=== PATIENT | male | born 1965 | race Caucasian/White ===

== ENCOUNTER 2016-05-21 09:49 | Emergency (ER) | payer MEDICARE, MEDICAID ==
[2016-05-21 10:26] VITALS: BP 122/82; PULSE 92; TEMP 98.9; BMI 28.5
--- NOTE | 2016-05-21 11:34 | DIRPT ---
CLINICAL DATA: Right wrist pain after fall down stairs this morning. Initial encounter. EXAM: RIGHT WRIST - COMPLETE 3+ VIEW COMPARISON: 12/25/2014 FINDINGS: There is no evidence of fracture or dislocation. Negative soft tissues. IMPRESSION: Negative. Electronically Signed By: Art Nichols M.D. On: 05/21/2016 11:32
[2016-05-21] MEDS ORDERED: HYDROCODONE 5 MG/ACETAMIN 325 MG TAB PO ONE (11:41)
--- NOTE | 2016-05-21 11:43 | EDPRACDOC ---
- General Information Chief Complaint: Wrist Pain Stated Complaint: FALL,RT WRIST PAIN Time Seen by Provider: 05/21/16 11:38 Information Source: Patient Home Medications: Home Medications Buspirone HCl [Buspar] 15 mg PO TID 12/15/13 Gabapentin [Neurontin] 600 mg PO QID 12/15/13 Lurasidone HCl [Latuda] 20 mg PO .DAILY WITH FOOD 05/02/14 Hydrocodone Bit/Acetaminophen [Hydrocodon-Acetaminophen 5-325] 1 tab PO Q4H PRN #7 tab 05/21/16 Trazodone HCl 100 mg PO QHS 05/21/16 Allergies/Adverse Reactions: Allergies Allergy/AdvReac Type Severity Reaction Status Date / Time Penicillins Allergy Hives* Verified 05/21/16 10:24 - History of Present Illness Onset: this am HPI: PT STATES FELL DOWN STEPS HURT RIGHT WRIST C/O PAIN. NO OBVIOUS SWELLING OR DEFORMITY. Location: Reports: Dorsal, Volar, Ulnar, Radial Dominant Side: Reports: Right Mechanism: Reports: FOOSH Circumstances: Reports: Fall Tetanus Up To Date?: No Pain Severity: Reports: Moderate Associated Signs and Symptoms: Reports: None ED Past Medical History - History Reviewed Yes Nurses notes reviewed and agree except as marked Travel Outside of [place] in the Last 3 Months?: No - Patient Medical History Cardiac History: Reports: Coronary Artery Disease, Hypertension, Congestive Heart Failure (has been told in the past), Cardiac Catheterization, Hypercholesterolemia GI/ History: Reports: Kidney Stones Psychological History: Reports: Anxiety, Schizophrenia, Bipolar Disorder. Denies: Depression Systemic History: Reports: Diabetes. Denies: Cancer Surgical History: Reports: Appendectomy, Cardiac Catheterization, Hernia Surgery , Tonsillectomy/Adnoidectomy - Family Medical History Reports: Hypertension (throughout the family), Diabetes (father, grandfather), Cancer (father-brain, grandmother-breast; grandfather-bladder/bowel), Stroke ( both grandmothers), Cardiac Disorders (grandfather - CHF) - Social Medical History Smoking Status: Heavy tobacco smoker (5 or more cigarettes/day or daily pipe/ cigar) ETOH: None Substance Abuse: None Lives With: Spouse Lives In: Home EDM Review of Systems - Review of Systems ROS Negative Except as Marked: Yes All systems reviewed and were negative except as marked Constitutional: No Symptoms Reported. negative: Fever, Chills, Weakness, Fatigue, Loss of Appetite Eyes: No Symptoms Reported. negative: Redness, Blurred Vision, Double Vision, Discharge, Pain, Light Sensitive, Photophobia Ears: No Symptoms Reported. negative: Pain, Hearing Loss, Drainage, Ear Pulling Throat: No Symptoms Reported. negative: Pain, Swelling Nose: No Symptoms Reported. negative: Congestion, Bleeding, Discharge, Injection, Swelling, Deformity, Ecchymosis, Tender, Abrasion, Laceration Mouth: No Symptoms Reported. negative: Pain, Drooling Respiratory: No Symptoms Reported. negative: Cough, Brassy Cough, Barky Cough, Shortness of Breath, Wheezing, Hemoptysis Cardiovascular: No Symptoms Reported. negative: Chest Pain, Palpitations, Syncope, Edema, Orthopnea, PND, Skin Mottling, Cyanosis Gastrointestinal: No Symptoms Reported. negative: Pain, Constipation, Nausea, Vomiting, Diarrhea, Melena, Formula Intolerance Genitourinary: No Symptoms Reported. negative: Dysuria, Hematuria, Frequency, Discharge, Bleeding, Testicular Pain, Neurological: No Symptoms Reported. negative: Headache, Dizziness, Seizure, Numbness, Weakness, Speech Difficulty, Gait Difficulty Musculoskeletal: Wrist (RT). negative: Arm, Ankle, Back, Chestwall, Elbow, Forearm, Femur, Foot, Hand, Hip, Knee, Leg, Neck, Pelvis, Ribs, Shoulder Integumentary: No Symptoms Reported. negative: Itching, Rash, Bruising, Wound Allergic/Immunologic: No Symptoms Reported. negative: Hives, Itching Hematologic: No Symptoms Reported. negative: Lymphadenopathy, Easy Bruising, Easy Bleeding Endocrine: No Symptoms Reported. negative: Weight Gain, Weight Loss Psychiatric: No Symptoms Reported. negative: Anxiety, Depression, Hallucinations, Insomnia, Suicidal - Physical Exam Constitutional: Alert (Awake), No apparent distress Oriented to: Time, Person, Place Last recorded Vital Signs: Last Vital Signs Temp 98.9 F 05/21/16 10:24 Pulse 92 05/21/16 10:24 Resp 18 05/21/16 10:24 BP 122/82 05/21/16 10:24 Pulse Ox 96 05/21/16 10:24 Oxygen Pulse Oxygen Saturation 96 O2 Device Room Air Oxygen Flow Rate Fraction of Inspired Oxygen ( FIO2) - HEENT Head: Normal ( normocephalic) Eye Exam: Normal (PERRL, EOMI, Sclera white) Oropharynx: Normal (Pharynx:Moist without exudate,Gums-no swelling) Tympanic Membrane: Normal ENT EAC: Normal TMJ: Normal Nose: No Symptoms Reported (septum midline) Neck: Normal (FROM, trachea at midline) - Respiratory/Cardiovascular Respiratory: Normal - CTA (BBS clear to auscultation without adventitious sounds ) Cardiovascular: Normal (RRR without murmur, gallop or rub) - GI Auscultation: Normal (NABS) Palpation: Normal (Soft,No rebound or guarding, non distended) Tenderness: Non tender Thomas's Sign: Negative - Bladder: Normal - Musculoskeletal Back: Normal (Non-Tender) Extremities: Normal (Normal tone, Pulses 2+ No cyanosis or edema, FROM) - Integumentary Skin: Normal, Warm, Dry Lymphatics: Normal (no adenopathy) - Neurologic Memory Impaired: Normal Motor Function: Normal (Normal tone, Pulses 2+ No cyanosis or edema, FROM) Cranial Nerve: Normal (CN II-X11 intact sensation, strength 5/5) Cerebellar: Normal Mood Description: Normal Perception: Normal ED Wrist Problem Exam Wrist Symptoms: Limited ROM (PAINFUL BUT FULL ROM), Mild Tenderness Hand Symptoms: Normal Forearm Symptoms: Normal Distal Function/Circulation: Normal - Integumentary Skin: Normal Tendon %: None Identified Lymphatics: Normal ED Procedures - Splinting WRIST Location: RT Pre-Made Type: velcro Pre-Proc Neuro Vasc Exam: normal Post-Proc Neuro Vasc Exam: normal ED Wrist Problem MDM - Differential Diagnosis Differential Diagnosis: Contusion, Fracture-Carpal, Fracture-Radius/Ulna, Sprain - Diagnostic Imaging WRIST Image interpreted by: Radiologist Diagnostic Imaging Comments: NEGATIVE Decision Time to Discharge: 11:44 - Departure Disposition: Home Condition: Stable Final Diagnosis: Sprain of wrist Instructions: Wrist Injury (ED) Education/Counseling Given To: Patient Education/Counseling Given Regarding: Diagnosis, Treatment, Prognosis, Follow Up Referrals: Lacho Miller MD [Primary Care Provider] - One Week Conner Blue MD [Staff Physician] - One Week Prescriptions: Hydrocodone Bit/Acetaminophen [Hydrocodon-Acetaminophen 5-325] 1 tab PO Q4H PRN #7 tab PRN Reason: Pain Additional Instructions: RICE
== END 2016-05-21 11:53 | disposition home or self-care (01) ==
LOC: ED 09:49 → EDMC 11:53
DX: S63.501A Unspecified sprain of right wrist, initial encounter (principal); W10.9XXA Fall (on) (from) unspecified stairs and steps, initial encounter
CPT/HCPCS: 29125; 73110; 99283; A9270; J3490

== ENCOUNTER 2016-06-02 03:51 | Emergency (ER) | payer MEDICARE, MEDICAID ==
[2016-06-02 04:47] VITALS: TEMP 97.7; BMI 28.7
[2016-06-02] MEDS ORDERED: MORPHINE 4 MG/ML INJECTION IV ONE ×2 (04:52→05:42)
[2016-06-02] MEDS ORDERED: NS 1,000 ML IV ONE (04:52)
[2016-06-02] MEDS ORDERED: ONDANSETRON HCL 4 MG/2 ML VIAL IV ONE ×2 (04:52→05:42)
--- NOTE | 2016-06-02 04:55 | EDPRACDOC ---
- General Information Information Source: Patient Mode Of Arrival: Car - History of Present Illness Onset: 229 HPI: c/o RLQ pain with pain in right flank and N/V since 2:30 this am. Pain is constant, Pt cannot get comfortable. Hx of kidney stones with last 2 yrs ago. Pt states that this feels just like the last one. Denies fever, sob, cp, cough, sore throat, changes in BM. Med hx = kidney stones, HTN. Surgical hx = appy, hernia repair all >4 yrs ago. Pain Began: Reports: Spontaneous (while sleeping) Pain Location: Reports: Abdomen (rlq), Flank (right). Denies: CVA Tenderness Pain Severity: Severe Pain Quality: Reports: Cramping Oral Intake: Decreased Urinary Output: Decreased Modifying Factors: improves with: Nothing Relevant History of: Reports: Urolithiasis Associated Signs and Symptoms: Reports: Abdominal Pain, Nausea, Vomiting <Gregg Hernadez - Last Filed: 06/02/16 06:04> <Keagan Orellana - Last Filed: 06/02/16 06:55> - General Information Chief Complaint: Male Urogenital Problems Stated Complaint: ABDOMINAL & SIDE PAIN Home Medications: Home Medications Buspirone HCl [Buspar] 15 mg PO TID 12/15/13 Gabapentin [Neurontin] 600 mg PO QID 12/15/13 Lurasidone HCl [Latuda] 20 mg PO .DAILY WITH FOOD 05/02/14 Hydrocodone Bit/Acetaminophen [Hydrocodon-Acetaminophen 5-325] 1 tab PO Q4H PRN #7 tab 05/21/16 Ibuprofen 800 mg PO Q6 #20 tablet 05/21/16 Trazodone HCl 100 mg PO QHS 05/21/16 Ketorolac Tromethamine [Toradol] 10 mg PO Q6H PRN #20 tab 06/02/16 Ondansetron [Zofran Odt] 4 mg PO Q6H PRN #20 tab.rapdis 06/02/16 Oxycodone HCl/Acetaminophen [Percocet 5-325 mg Tablet] 1 each PO Q4 #30 tablet 06/02/16 Tamsulosin HCl [Flomax] 0.4 mg PO DAILY #30 cap.er.24h 06/02/16 Allergies/Adverse Reactions: Allergies Allergy/AdvReac Type Severity Reaction Status Date / Time Penicillins Allergy Hives* Verified 06/02/16 05:08 ED Past Medical History - History Reviewed Yes Nurses notes reviewed and agree except as marked - Patient Medical History Cardiac History: Reports: Coronary Artery Disease, Hypertension, Congestive Heart Failure (has been told in the past), Cardiac Catheterization, Hypercholesterolemia GI/ History: Reports: Kidney Stones Psychological History: Reports: Anxiety, Schizophrenia, Bipolar Disorder. Denies: Depression Systemic History: Reports: Diabetes. Denies: Cancer Surgical History: Reports: Cardiac Catheterization, Hernia Surgery, Tonsillectomy/Adnoidectomy - Family Medical History Reports: Hypertension (throughout the family), Diabetes (father, grandfather), Cancer (father-brain, grandmother-breast; grandfather-bladder/bowel), Stroke ( both grandmothers), Cardiac Disorders (grandfather - CHF) - Social Medical History Smoking Status: Heavy tobacco smoker (5 or more cigarettes/day or daily pipe/ cigar) <Gregg Hernadez - Last Filed: 06/02/16 06:04> EDM Review of Systems - Review of Systems ROS Negative Except as Marked: Yes All systems reviewed and were negative except as marked Gastrointestinal: Nausea, Pain, Vomiting Genitourinary: Flank Pain (right) <Gregg Hernadez - Last Filed: 06/02/16 06:04> - Physical Exam Constitutional: Alert Oriented to: Time, Person, Place Last recorded Vital Signs: Last Vital Signs Temp 97.7 F 06/02/16 04:30 Pulse 81 06/02/16 04:30 Resp 22 06/02/16 04:30 BP 161/103 H 06/02/16 04:30 Pulse Ox 96 06/02/16 04:30 Oxygen Pulse Oxygen Saturation 96 O2 Device Room Air Oxygen Flow Rate Fraction of Inspired Oxygen ( FIO2) - HEENT Head: Normal Eye Exam: negative: Conjunctival Injection, Scleral Icterus Oropharynx: negative: Drooling TMJ: Normal Nose: No Symptoms Reported Neck: Normal - Respiratory/Cardiovascular Respiratory: Normal - CTA Cardiovascular: Normal - GI Auscultation: Normal Palpation: Normal Tenderness: Moderate, RLQ, Other (right flank) - Musculoskeletal Back: negative: CVA Tenderness Extremities: Normal - Integumentary Skin: Normal - Neurologic Mood Description: Normal Thought: Coherent Perception: Normal <Gregg Hernadez - Last Filed: 06/02/16 06:04> - Physical Exam Last recorded Vital Signs: Last Vital Signs Temp 97.7 F 06/02/16 04:30 Pulse 75 06/02/16 06:46 Resp 18 06/02/16 06:46 BP 132/85 06/02/16 06:46 Pulse Ox 93 06/02/16 06:46 Oxygen Pulse Oxygen Saturation 93 O2 Device Room Air Oxygen Flow Rate Fraction of Inspired Oxygen ( FIO2) <Keagan Orellana - Last Filed: 06/02/16 06:55> - Results 06/02/16 04:39 06/02/16 04:39 - Additional Information Care given over to Dr Orellana at this time. <Gregg Hernadez - Last Filed: 06/02/16 06:04> - Results 06/02/16 04:39 06/02/16 04:39 WBC 8.8 xk/uL (3.8-10.8) 06/02/16 04:39 RBC 4.83 xM/uL (4.70-6.10) 06/02/16 04:39 Hgb 16.1 g/dL (14.0-18.0) 06/02/16 04:39 Hct 46.4 % (42-52) 06/02/16 04:39 MCV 96 fL (80-94) H 06/02/16 04:39 MCH 33.4 pg (27-32) H 06/02/16 04:39 MCHC 34.8 g/dl (33-36) 06/02/16 04:39 RDW 12.7 % (11.5-14.5) 06/02/16 04:39 Plt Count 200 xk/uL (130-400) 06/02/16 04:39 MPV 9.7 fL (7.4-10.4) 06/02/16 04:39 Neut % (Auto) 59.8 % (45-76) 06/02/16 04:39 Lymph % (Auto) 30.1 % (17-44) 06/02/16 04:39 Hopkins % (Auto) 8.8 % (3-10) 06/02/16 04:39 Eos % (Auto) 0.6 % (0-5) 06/02/16 04:39 Baso % (Auto) 0.7 % (0-2) 06/02/16 04:39 Absolute Neuts (auto) 5.19 xk/uL (1.7-8.2) 06/02/16 04:39 Absolute Lymphs (auto) 2.64 xk/uL (0.65-4.75) 06/02/16 04:39 Sodium 141 mEq/L (137-146) 06/02/16 04:39 Potassium 3.6 mEq/L (3.5-5.1) 06/02/16 04:39 Chloride 107 mEq/L (98-107) 06/02/16 04:39 Carbon Dioxide 23 mMOL/L (22-33) 06/02/16 04:39 Anion Gap 15 mEq/L (8-16) 06/02/16 04:39 BUN 9 MG/DL (9-20) 06/02/16 04:39 Creatinine 0.80 MG/DL (0.66-1.25) 06/02/16 04:39 Estimated GFR (MDRD) > 60 mL/min (>=60) 06/02/16 04:39 Glucose 173 MG/DL (70-99) H 06/02/16 04:39 Calculated Osmolality 274 MOs/Kg (270-290) 06/02/16 04:39 Calcium 8.7 MG/DL (8.4-10.2) 06/02/16 04:39 Total Bilirubin 0.3 MG/DL (0.2-1.3) 06/02/16 04:39 AST 23 IU/L (17-59) 06/02/16 04:39 ALT 47 IU/L (21-72) 06/02/16 04:39 Alkaline Phosphatase 92 IU/L (38-126) 06/02/16 04:39 Total Protein 7.0 G/DL (6.3-8.2) 06/02/16 04:39 Albumin 4.1 G/DL (3.5-5.0) 06/02/16 04:39 Urine Color Dark yellow 06/02/16 05:39 Urine Clarity Hazy 06/02/16 05:39 Urine pH 5.0 (5.0-8.0) 06/02/16 05:39 Ur Specific [place] 1.025 (1.003-1.035) 06/02/16 05:39 Urine Protein 1+ (NEG/TRACE) H 06/02/16 05:39 Urine Glucose (UA) Neg (NEGATIVE) 06/02/16 05:39 Urine Ketones Neg (NEGATIVE) 06/02/16 05:39 Urine Occult Blood 3+ (NEG/TRACE) H 06/02/16 05:39 Urine Nitrite Neg (NEGATIVE) 06/02/16 05:39 Urine Bilirubin Neg (NEGATIVE) 06/02/16 05:39 Urine Urobilinogen 0.2 MG/DL (0-1) 06/02/16 05:39 Ur Leukocyte Esterase Neg (NEGATIVE) 06/02/16 05:39 Urine RBC Tntc (0-2) H 06/02/16 05:39 Urine WBC 2-5 (0-2) H 06/02/16 05:39 Urine Mucus Large (NEG/OCC) 06/02/16 05:39 Lab Results 06/02/16 06/02/16 06/02/16 05:39 04:39 04:39 WBC 8.8 RBC 4.83 Hgb 16.1 Hct 46.4 MCV 96 H MCH 33.4 H MCHC 34.8 RDW 12.7 Plt Count 200 MPV 9.7 Neut % (Auto) 59.8 Lymph % (Auto) 30.1 Hopkins % (Auto) 8.8 Eos % (Auto) 0.6 Baso % (Auto) 0.7 Absolute Neuts (auto) 5.19 Absolute Lymphs (auto) 2.64 Sodium 141 Potassium 3.6 Chloride 107 Carbon Dioxide 23 Anion Gap 15 BUN 9 Creatinine 0.80 Estimated GFR (MDRD) > 60 Glucose 173 H Calculated Osmolality 274 Calcium 8.7 Total Bilirubin 0.3 AST 23 ALT 47 Alkaline Phosphatase 92 Total Protein 7.0 Albumin 4.1 Urine Color Dark yellow Urine Clarity Hazy Urine pH 5.0 Ur Specific [place] 1.025 Urine Protein 1+ H Urine Glucose (UA) Neg Urine Ketones Neg Urine Occult Blood 3+ H Urine Nitrite Neg Urine Bilirubin Neg Urine Urobilinogen 0.2 Ur Leukocyte Esterase Neg Urine RBC Tntc H Urine WBC 2-5 H Urine Mucus Large <Keagan Orellana - Last Filed: 06/02/16 06:55> <Gregg Hernadez - Last Filed: 06/02/16 06:04> Decision Time to Discharge: 06:52 - Departure Yes I personally saw and evaluated the patient. Disposition: Home Education/Counseling Given To: Patient Education/Counseling Given Regarding: Diagnosis, Treatment, Prognosis, Follow Up <Keagan Orellana - Last Filed: 06/02/16 06:55> - Departure Condition: Good Final Diagnosis: Right ureteral calculus Instructions: Kidney Stones (ED), Renal Colic (ED) Referrals: None,No Provider [NonStaff] - One Week Miky Alejandre MD [Staff Physician] - One Week Prescriptions: Ketorolac Tromethamine [Toradol] 10 mg PO Q6H PRN #20 tab PRN Reason: Pain Ondansetron [Zofran Odt] 4 mg PO Q6H PRN #20 tab.rapdis PRN Reason: Nausea/Vomiting Oxycodone HCl/Acetaminophen [Percocet 5-325 mg Tablet] 1 each PO Q4 #30 tablet Tamsulosin HCl [Flomax] 0.4 mg PO DAILY #30 cap.er.24h
[2016-06-02 05:31] LABS: AUTOMATED BASOPHIL 0.7 % (0-2); AUTOMATED EOSINOPHIL 0.6 % (0-5); AUTOMATED LYMPH 30.1 % (17-44); AUTOMATED MONOCYTE 8.8 % (3-10); AUTOMATED NEUTROPHIL 59.8 % (45-76); MPV 9.7 fL (7.4-10.4)
[2016-06-02 05:46] LABS: BLOOD UREA NITROGEN 9 MG/DL (9-20); CALCIUM 8.7 MG/DL (8.4-10.2); CALCULATED OSMOLALITY 274 MOs/Kg (270-290); CHLORIDE 107 mEq/L (98-107); GLUCOSE 173 MG/DL (70-99); SODIUM LEVEL 141 mEq/L (137-146)
[2016-06-02 06:07] LABS: RBC/URINE TNTC (0-2)
[2016-06-02 06:13] LABS: LEUKOCYTES/URINE NEG (NEGATIVE); NITRITE/URINE NEG (NEGATIVE); URINE OCCULT BLOOD 3+ (NEG/TRACE)
--- NOTE | 2016-06-02 06:50 | DIRPT ---
CLINICAL DATA: 50-year-old male with right flank pain. EXAM: CT ABDOMEN AND PELVIS WITHOUT CONTRAST TECHNIQUE: Multidetector CT imaging of the abdomen and pelvis was performed following the standard protocol without IV contrast. COMPARISON: Abdominal radiograph dated 10/15/[address] dated 05/02/2014 FINDINGS: Minimal bibasilar linear atelectasis/ scarring. The visualized lung bases are otherwise clear. No intra-abdominal free air or free fluid. Diffuse hepatic steatosis with areas of spurring along the gallbladder fossa. The gallbladder, pancreas, spleen, adrenal glands appear unremarkable. There are multiple nonobstructing left renal calculi measuring up to 5 mm in the interpolar aspect of the left kidney. There is no hydronephrosis on the left. A 3 mm right ureteropelvic junction stone with mild right hydronephrosis. The urinary bladder is unremarkable. The prostate and seminal vesicles are grossly unremarkable. There is scattered sigmoid diverticula without active inflammatory changes. Moderate stool throughout the colon. No evidence of bowel obstruction or inflammation. Appendectomy. The abdominal aorta and IVC appear grossly unremarkable. No portal venous gas identified. There is no adenopathy. Small fat containing umbilical hernia. Left inguinal hernia repair noted. Mild degenerative changes of the spine. No acute fracture. IMPRESSION: A 3 mm right UPJ stone with mild right hydronephrosis. Electronically Signed By: Ferny Enrique M.D. On: 06/02/2016 06:47
[2016-06-02] MEDS ORDERED: KETOROLAC TROMETH 30 MG/ML VIAL IV ONE (06:55)
[2016-06-02 08:12] VITALS: BP 138/83; PULSE 78
== END 2016-06-02 08:11 | disposition home or self-care (01) ==
LOC: ED 03:51
DX: N20.1 Calculus of ureter (principal); E11.9 Type 2 diabetes mellitus without complications; I10 Essential (primary) hypertension; E78.00 Pure hypercholesterolemia, unspecified; I25.10 Atherosclerotic heart disease of native coronary artery without angina pectoris; F17.200 Nicotine dependence, unspecified, uncomplicated; Z79.899 Other long term (current) drug therapy
CPT/HCPCS: 36415; 74176; 80053; 81001; 85025; 96361; 96374; 96375; 96376; 99284; J1885; J2270; J2405

== ENCOUNTER → 2016-06-11 | Day surgery (SDC) | payer MEDICARE, MEDICAID ==
[2016-06-02 04:47] VITALS: BMI 28.7
[~2016-06-11] MED LIST: DEXAMETHASONE 4 MG/ML VIAL IV ONE; FENTANYL 100 MCG/2 ML VIAL IV ONE; FENTANYL 100 MCG/2 ML VIAL IV PRN; HYDROmorphone 1 MG INJECTION IV PRN; ISOVUE-300 (61%) 50 ML ONE; KETOROLAC TROMETH 30 MG/ML VIAL IM ONE; LABETALOL 20 MG/4 ML SYRINGE IV PRN; LIDOCAINE 100 MG PFS IV ONE; Levofloxacin 500 mg/100 ml D5W 500 MG/100 ML RTU IV ONE; MEPERIDINE 25 MG/ML TUBEX IV PRN; MIDAZOLAM 2 MG/2 ML VIAL IV ONE; ONDANSETRON HCL 4 MG ODT TAB PO PRN; ONDANSETRON HCL 4 MG/2 ML VIAL IV ONE; ONDANSETRON HCL 4 MG/2 ML VIAL IV PRN; PROMETHAZINE 25 MG/ML VIAL IV PRN; PROPOFOL 200 MG/20 ML VIAL IV ONE; hydrALAZINE 20 MG/ML VIAL IV PRN
[2016-06-11 09:21] LABS: AUTOMATED BASOPHIL 0.5 % (0-2); AUTOMATED LYMPH 33.9 % (17-44); AUTOMATED MONOCYTE 7.8 % (3-10); AUTOMATED NEUTROPHIL 56.8 % (45-76); MPV 8.1 fL (7.4-10.4)
--- NOTE | 2016-06-11 09:28 | SC.ANESPOS ---
[id number], Hemodynamically Stable, Pain Control Adequate Phase I & II Recovery Complete: Yes Apparent Anesthesia Complication: No : N - Vital Signs Blood Pressure: 133/81 Pulse: 71 Resp Rate: 20 O2 Sat: 100 Temp: 97.7 F
--- NOTE | 2016-06-11 09:30 | HIM.ANES ---
Anesthesia Evaluation & Plan Diagnoses: CALCULUS OF URETER (06/11/16) - Focused Review of Systems Cardiac History: Yes: Hx Hypertension (UNCONTROLLED), Hx Cardiac Catheterization (12/2007), Hx Cardiac Disorders, Hx Abnormal Cholesterol/ Hyperlipidemia, Hx Congestive Heart Failure (has been told in the past) HEENT: No: Other HEENT Problems Respiratory: Yes: Patient at risk for Sleep apnea (Based on JOYA tool) Gastrointestinal: Yes: Hx Gastroesophageal Reflux Disease (Controlled at present ), Hx Gastrointestinal Disorders Neurological/Musculoskeletal: Yes: Hx Migraine, Hx Neurological Disorders Psychological: Yes Hx Anxiety, No Hx Depression, Yes Hx Mental/Emotional Disorders, Yes Hx Bipolar Disorder HX Other Psyco/Soc Problems: schizoprenia Endocrine: Yes: Hx Diet Controlled Diabetes, Hx Non-Insulin Dependent Diabetes Blood/Autoimmune: No: Hx AIDS, Hx Hepatitis (type) Smoking Status: Heavy tobacco smoker (5 or more cigarettes/day or daily pipe/ cigar) Hx Stress Test (date): Yes (06/14/2012 NEGATIVE) Hx Echocardiogram (date): Yes (06/14/2012 EF 50-55%) Surgical History: Yes: T&A - Focused Physical Exam NPO since: after Midnight Mallampati: Class III Thyromental Distance: Greater than 3 Neck: Full Range of Motion Dental: Normal - no significant findings Cardiovascular/Chest: Normal Respiratory: Lungs clear Any problems with anesthesia, including nausea and vomiting?: No Any relatives with a history of Malignant Hyperthermia?: No Beta Andrés given (if appropriate): N/A Other: Problem List Problem Status Onset Cephalalgia Acute Medication adverse effect Acute Myalgia Acute Renal calculus Acute Right ureteral calculus Acute Ureter colic Acute Ureteral stent displacement Acute Urinary incontinence Acute CBC/BMP/Other 06/11/16 05:45 Allergies Allergy/AdvReac Type Severity Reaction Status Date / Time Penicillins Allergy Hives* Verified 06/11/16 09:14 tamsulosin [From Flomax] Allergy See Verified 06/11/16 09:14 Comments Home Medications Medication Instructions Recorded Last Taken Type Buspirone HCl [Buspar] 15 mg PO TID 12/15/13 06/10/16 22:00 History Gabapentin [Neurontin] 600 mg PO QID 12/15/13 06/10/16 20:00 History Lurasidone HCl [Latuda] 20 mg PO .DAILY WITH FOOD 05/02/14 06/08/16 22:00 History Trazodone HCl 100 mg PO QHS 05/21/16 06/10/16 22:00 History Ondansetron [Zofran Odt] 4 mg PO Q6H PRN #20 tab.rapdis 06/02/16 06/09/16 Rx Ciprofloxacin HCl [Cipro] 1 tab PO BID 06/11/16 Unknown History Oxycodone HCl/Acetaminophen 1 tab PO Q6H PRN 06/11/16 06/11/16 06:30 History [Endocet 10-325 mg Tablet] Height and Weight Patient's height 5 ft 6 in Patient's weight 178 lb BMI 28.7 - Anesthetic Plan Anesthesia Type: General ASA Class: 3 -: I have examined this patient and reviewed the medical record. The patient has been assessed prior to anesthesia. Risks and benefits of anesthesia and anesthetic technique options have been discussed and all questions answered. The patient accepts the risk and desires me to proceed with the planned anesthetic.
[2016-06-11 09:41] LABS: BLOOD UREA NITROGEN 16 MG/DL (9-20); CALCIUM 8.5 MG/DL (8.4-10.2); CALCULATED OSMOLALITY 268 MOs/Kg (270-290); CHLORIDE 107 mEq/L (98-107); GLUCOSE 123 MG/DL (70-99); SODIUM LEVEL 138 mEq/L (137-146)
--- NOTE | 2016-06-11 11:28 | HIMOPRPT ---
COMPLICATIONS: DATE OF PROCEDURE: 06/11/16 PREOPERATIVE DIAGNOSIS: Ureteral Stone with Renal Colic. POSTOPERATIVE DIAGNOSIS: Ureteral Stone with Renal Colic. PROCEDURE PERFORMED: Cystoscopy, [RIGHT] Ureteroscopy, Laser Ablation of Stone, Retrograde Pyelogram and placement of a Double-J stent on the RIGHT] side, [24 ] cm in length [with] a string. ANESTHESIA: General. SURGEON: Miky Alejandre MD PROCEDURE IN DETAIL: The patient was taken to the operating room and was given general anesthesia. After that, patient was put in lithotomy position, and was prepped and draped in usual sterile fashion. C-arm and camera was used throughout the procedure as needed. A 23-Ecuadorean cystoscope was introduced in the bladder. Bladder was examined. [There was no evidence of any tumors or stones]. Both ureteral orifices were normally located. Then, a [0.038] guidewire was passed through the [RIGHT] ureteral orifice and guided into the area of the renal pelvis bypassing the stone on this side. Then, a balloon dilating catheter was passed over the guidewire and positioned across the area of the intramural ureter. The balloon was inflated to adequate pressure. Pressure in the balloon was maintained for 30 seconds. Balloon was then deflated and removed. Guidewire was left in. Cystoscope was removed and Ureteroscopy was carried out on this side until stone was visualized. A 365 laser fiber was passed and placed in contact with the stone and with the power settings at 8 the stone was nicely pulverized to fine sand like particles. Ureteroscopy was then terminated. Cystoscope was reintroduced over the guidewire and then an open ended catheter was passed over the guidewire and retrograde pyelogram was obtained. Guidewire was then reintroduced and a [6]- Ecuadorean [24]cm double-J stent was passed and positioned, so the upper end was coiled up in the renal pelvis, and lower end was coiled up in the bladder. The string coming out of the urethra was taped to the outside of the penis and held in place with the help of an tapes. Tolerated procedure well. The patient was returned to the recovery room area in satisfactory condition.
[2016-06-11 11:48] VITALS: TEMP 97.7
--- NOTE | 2016-06-11 11:54 | CAPUEKG ---
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
[2016-06-11 12:50] VITALS: PULSE 71
[2016-06-11 17:39] VITALS: BP 133/81
== END ==
LOC: SDC 08:41
PROVIDERS: ATTEND Urology
PROC: 0T768DZ Dilation of Right Ureter with Intraluminal Device, Via Natural or Artificial Opening Endoscopic (ICD-10-PCS; 2016-06-11)
PROC: 0TF68ZZ Fragmentation in Right Ureter, Via Natural or Artificial Opening Endoscopic (ICD-10-PCS; principal; 2016-06-11 10:10)
DX: N20.1 Calculus of ureter (principal); I10 Essential (primary) hypertension; E11.9 Type 2 diabetes mellitus without complications; E78.5 Hyperlipidemia, unspecified; I50.9 Heart failure, unspecified; K21.9 Gastro-esophageal reflux disease without esophagitis; F41.9 Anxiety disorder, unspecified; F20.9 Schizophrenia, unspecified; G43.909 Migraine, unspecified, not intractable, without status migrainosus; F17.210 Nicotine dependence, cigarettes, uncomplicated; Z79.899 Other long term (current) drug therapy
CPT/HCPCS: 52356; 80048; 85025; 93005; C2617; J1100; J1885; J1956; J2001; J2405; J2550; J3010; J3490; 82365; J2250